=== PATIENT | female | born 1960 | race Caucasian/White ===

== ENCOUNTER 2021-07-27 11:53 | Inpatient (IN) | payer MEDICAID ==
[2021-07-26 18:35] VITALS: BP 146/83
[~2021-07-27] VITALS: Ht 12.7 cm; Wt 70.5 kg
[2021-07-27 12:28] LABS: BASOPHILS % (AUTO) 0.4 % (0-1); EOSINOPHILS % (AUTO) 0.2 % (0-6); HEMATOCRIT 33.2 % (35.0-45.0); HEMOGLOBIN 10.4 g/dl (12.0-16.0); LYMPHOCYTES # (AUTO) 0.5 X10'3 (1.1-4.8); LYMPHOCYTES % (AUTO) 4.9 % (21-51); MEAN CORPUSCULAR HEMOGLOBIN 25.6 PG (27.0-31.0); MEAN CORPUSCULAR HGB CONC 31.4 g/dL (33.0-36.5); MEAN CORPUSCULAR VOLUME 81.6 FL (78-98); MEAN PLATELET VOLUME 9.6 FL (7.4-10.4); MONOCYTES # (AUTO) 0.4 X10'3 (0-0.9); MONOCYTES % (AUTO) 3.3 % (2-12); NEUTROPHILS # (AUTO) 9.7 X10'3 (1.8-7.7); NEUTROPHILS % (AUTO) 91.2 % (42-75); PLATELET COUNT 286 X10'3 (140-440); RED BLOOD COUNT 4.07 X10'6 (4.20-5.60); RED CELL DISTRIBUTION WIDTH 17.7 % (11.5-14.5); WHITE BLOOD COUNT 10.7 X10'3 (4.5-11.0)
[2021-07-27] MEDS ORDERED: normal saline 1000ML IV soln IV ONE (12:40)
[2021-07-27 12:54] LABS: ALANINE AMINOTRANSFERASE 27 U/L (12-78); ALBUMIN 3.4 G/DL (3.4-5.0); ALKALINE PHOSPHATASE 115 IU/L (46-116); ANION GAP 9 (8-16); ASPARTATE AMINO TRANSFERASE 27 U/L (10-37); BILIRUBIN,TOTAL 1.1 MG/DL (0.1-1.0); BLOOD UREA NITROGEN 14 MG/DL (7-18); BUN/CREATININE RATIO 16.1 (6.6-38.0); CALCIUM 8.1 MG/DL (8.5-10.1); CHLORIDE 102 MMOL/L (99-107); CREATININE 0.87 MG/DL (0.40-0.90); GLUCOSE 147 MG/DL (70-104); POTASSIUM 3.9 MMOL/L (3.5-5.1); SODIUM 139 MMOL/L (135-145); TOTAL CARBON DIOXIDE 28.3 MMOL/L (24-32); TOTAL PROTEIN 6.9 G/DL (6.4-8.2); eGFR 67 ML/MIN
[2021-07-27] MEDS ORDERED: aspirin 81mg tab.chew PO ONE (13:40)
[2021-07-27 13:57] LABS: CLARITY,URINE CLEAR (Clear); COLOR,URINE YELLOW (Yellow); GLUCOSE, URINE NEGATIVE (Neg); KETONES,URINE TRACE mg/dl (Neg); LEUKOCYTE ESTERASE ,URINE NEGATIVE (Neg); NITRITES, URINE NEGATIVE (Neg); OCCULT BLOOD,URINE NEGATIVE (Neg); PH,URINE 6.5 (4.8-8.0); PROTEIN,URINE 100 mg/dl (Neg)
[2021-07-27 14:03] LABS: UA COLLECTION TYPE STRAIGHT CATH
[2021-07-27 14:04] LABS: BACTERIA,URINE NONE SEEN /HPF (Neg); MUCUS STRANDS FEW /LPF (Neg); RBC,URINE 0-2 /HPF (0-2); SQUAMOUS EPITHELIAL CELL,UR NONE SEEN /LPF (FEW); WBC,URINE NONE SEEN /HPF (0-4)
[2021-07-27] MEDS ORDERED: morphine 2 MG/ML inj. syringe IV PRN (14:30)
[2021-07-27] MEDS ORDERED: mag hydrox/Alum hydrox/simeth 30ml oral suspension PO PRN (14:30)
[2021-07-27] MEDS ORDERED: acetaminophen 325mg tablet PO PRN (14:30)
[2021-07-27] MEDS ORDERED: magnesium hydroxide 30ml (MOM) UD suspension PO PRN (14:30)
[2021-07-27] MEDS ORDERED: ondansetron/PF 4mg/2ml inj IV PRN (14:30)
[2021-07-27 14:58] LABS: ETHANOL < 0.010 GM/DL (0.0-0.010)
[2021-07-27] MEDS ORDERED: ATOR40TA71 PO (16:20)
[2021-07-27] MEDS ORDERED: ALBU8.5H17 IH (16:20)
[2021-07-27] MEDS ORDERED: METO50TA17 PO (16:20)
[2021-07-27] MEDS ORDERED: METF750T46 PO (16:20)
[2021-07-27] MEDS ORDERED: LORA10TA7 PO (16:20)
[2021-07-27] MEDS ORDERED: INSU100I39 SQ (16:20)
[2021-07-27] MEDS ORDERED: SERT-433 PO (16:20)
[2021-07-27] MEDS ORDERED: PANT40TA54 PO (16:20)
[2021-07-27] MEDS ORDERED: INSU100I31 SQ (16:20)
[2021-07-27] MEDS ORDERED: GABA800T11 PO (16:20)
[2021-07-27] MEDS ORDERED: BUPR-344 PO (16:20)
[2021-07-27] MEDS ORDERED: APIX5TAB3 PO (16:21)
[2021-07-27] MEDS ORDERED: ASPI-611 PO (16:43)
[2021-07-27] MEDS ORDERED: albuterol 2.5 MG/3 ML nebule NEB PRN (16:50)
--- NOTE | 2021-07-27 16:50 | NUR ---
Report given to MEMO Jaramillo in PCU.
[2021-07-27 17:19] VITALS: BP 175/107
[2021-07-27 17:32] LABS: CHOL/HDL RATIO 1.8 (0.00-4.99); CHOLESTEROL 109 MG/DL (0-200); HDL CHOLESTEROL 60 MG/DL (35-60); TRIGLYCERIDES 52 MG/DL (20-135)
[2021-07-27] MEDS ORDERED: hydrALAZINE 20mg/ml inj. IV PRN (17:40)
[2021-07-27] MEDS ORDERED: furosemide 40mg/4ml inj IV ONE ×2 (17:40→22:55)
--- NOTE | 2021-07-27 17:40 | NUR ---
Pt arrived to PCU unit BP 175/107, Pt with complaints of Chest pain(4) on the rt side. Skin war and dry, Denies CP radiatiing. Pagmishel Alfred for orders.Spoke with Dr. Alfred and orders to prn.follow. Addendum: 07/27/21 at 1826 by Ella Boyle RN 1755- BP retaken prior pt leaving for MRI. BP 165/95, Pt calmer less anxious, Encouraged to relax. MRI RN/Tech at bedside, Instructed to wait to give prn blood pressure medicaton till after MRI. Will reassess pt when eli Addendum: 07/27/21 at 1827 by Ella Boyle RN return from MRI.
[2021-07-27 17:45] LABS: LDL CHOLESTEROL 43 MG/DL (50-100)
--- NOTE | 2021-07-27 18:20 | NUR ---
Patient in room PCU 3014. I have received report from MEMO Jaramillo and had the opportunity to ask questions and assume patient care. Pt. in MRI.
--- NOTE | 2021-07-27 18:35 | NUR ---
Pt back from MRI, VSS, Afebrile, son in ro0m with pt. POC discussed with pt, and son, verbalized understanding. Call light placed within easy reach.
[2021-07-27 18:40] VITALS: BP 146/83
[2021-07-27] MEDS ORDERED: insulin glargine (Lantus) pen - multi-dose SQ SCH (21:00)
[2021-07-27] MEDS: metoprolol tartrate 50mg tablet PO SCH (21:26)
[2021-07-27] MEDS: apixaban 5mg tablet PO SCH (21:26)
[2021-07-27] MEDS: docusate sod 100mg capsule PO SCH (21:27)
[2021-07-27] MEDS: insulin Lispro (HumaLOG) vial - multi-dose SQ SCH (21:45)
[2021-07-27 22:00] VITALS: BP 111/69
[2021-07-28 02:00] VITALS: BP 141/78
[2021-07-28 06:00] VITALS: BP 160/91
[2021-07-28 06:39] LABS: BASOPHILS % (AUTO) 0.5 % (0-1); EOSINOPHILS # (AUTO) 0.1 X10'3 (0-0.9); EOSINOPHILS % (AUTO) 0.7 % (0-6); HEMATOCRIT 31.8 % (35.0-45.0); HEMOGLOBIN 10.1 g/dl (12.0-16.0); LYMPHOCYTES # (AUTO) 2.3 X10'3 (1.1-4.8); LYMPHOCYTES % (AUTO) 24.5 % (21-51); MEAN CORPUSCULAR HEMOGLOBIN 25.7 PG (27.0-31.0); MEAN CORPUSCULAR HGB CONC 31.7 g/dL (33.0-36.5); MEAN CORPUSCULAR VOLUME 80.9 FL (78-98); MEAN PLATELET VOLUME 9.9 FL (7.4-10.4); MONOCYTES # (AUTO) 0.8 X10'3 (0-0.9); MONOCYTES % (AUTO) 8.3 % (2-12); NEUTROPHILS # (AUTO) 6.2 X10'3 (1.8-7.7); PLATELET COUNT 270 X10'3 (140-440); RED BLOOD COUNT 3.93 X10'6 (4.20-5.60); RED CELL DISTRIBUTION WIDTH 17.9 % (11.5-14.5); WHITE BLOOD COUNT 9.4 X10'3 (4.5-11.0)
[2021-07-28 07:46] LABS: ALANINE AMINOTRANSFERASE 27 U/L (12-78); ALBUMIN 3.4 G/DL (3.4-5.0); ALBUMIN/GLOBULIN RATIO 1.1 (1.1-1.5); ALKALINE PHOSPHATASE 116 IU/L (46-116); ANION GAP 12 (8-16); ASPARTATE AMINO TRANSFERASE 30 U/L (10-37); BILIRUBIN,TOTAL 0.9 MG/DL (0.1-1.0); BLOOD UREA NITROGEN 15 MG/DL (7-18); BUN/CREATININE RATIO 19.7 (6.6-38.0); CALCIUM 8.3 MG/DL (8.5-10.1); CHLORIDE 103 MMOL/L (99-107); CREATININE 0.76 MG/DL (0.40-0.90); GLUCOSE 81 MG/DL (70-104); POTASSIUM 3.6 MMOL/L (3.5-5.1); SODIUM 142 MMOL/L (135-145); TOTAL CARBON DIOXIDE 26.8 MMOL/L (24-32); TOTAL PROTEIN 6.6 G/DL (6.4-8.2); eGFR 78 ML/MIN
[2021-07-28] MEDS ORDERED: furosemide 40mg/4ml inj IV SCH (08:00)
[2021-07-28] MEDS ORDERED: buPROPion SR 150mg tablet PO SCH (08:00)
[2021-07-28] MEDS ORDERED: enoxaparin 40mg/0.4ml syringe SUBCUT SCH (08:00)
[2021-07-28] MEDS: insulin Lispro (HumaLOG) vial - multi-dose SQ SCH ×2 (08:00→13:59)
[2021-07-28] MEDS: docusate sod 100mg capsule PO SCH (08:00)
[2021-07-28] MEDS ORDERED: sertraline 50mg tablet PO SCH (08:00)
[2021-07-28] MEDS ORDERED: pantoprazole 40mg Tablet.DR PO SCH (08:00)
[2021-07-28] MEDS ORDERED: atorvastatin 20mg tablet PO SCH (08:00)
[2021-07-28] MEDS ORDERED: aspirin 81mg, enteric-coated 1 TAB TABLET.DR PO SCH (08:00)
[2021-07-28] MEDS ORDERED: loratadine 10mg tablet PO SCH (08:00)
[2021-07-28] MEDS: metoprolol tartrate 50mg tablet PO SCH (09:38)
[2021-07-28] MEDS: apixaban 5mg tablet PO SCH (09:39)
--- NOTE | 2021-07-28 10:08 | NUR ---
Noted pt ht 5" and BMI 4367.9 in EMR; LISA d/w RN regarding updated ht this admit. Addendum: 07/28/21 at [address] Amended: Links added.
[2021-07-28 11:00] VITALS: BP 141/73
[2021-07-28] MEDS ORDERED: POTA-207 PO (15:12)
[2021-07-28] MEDS ORDERED: FURO-149 PO (15:12)
--- NOTE | 2021-07-28 16:00 | NUR ---
Discharged. Discharge Teaching/Instructions given, Informed of medication at [facility] on [address] for pick-up, educated on the new medication potassium. IV discontinued, telemetry removed. Pt states has all belongings. Pt escorted to personal vehicle-son awaiting for transfer to home.Denies any complaints or requests prior.
== END 2021-07-28 15:55 | disposition home or self-care (01) | DRG 194 ==
LOC: ER 11:54 → ED HOLD 14:31 → PCU 3S 17:05
PROVIDERS: ADMIT Family Medicine; ATTEND Family Medicine
DX: I11.0 Hypertensive heart disease with heart failure (principal); G93.41 Metabolic encephalopathy; E87.2 Acidosis; G45.9 Transient cerebral ischemic attack, unspecified; E11.9 Type 2 diabetes mellitus without complications; E78.5 Hyperlipidemia, unspecified; I50.23 Acute on chronic systolic (congestive) heart failure; I24.8 Other forms of acute ischemic heart disease; I25.10 Atherosclerotic heart disease of native coronary artery without angina pectoris; J44.9 Chronic obstructive pulmonary disease, unspecified; Z95.1 Presence of aortocoronary bypass graft; Z88.2 Allergy status to sulfonamides; Z79.899 Other long term (current) drug therapy; Z79.82 Long term (current) use of aspirin
CPT/HCPCS: 36415; 70450; 70544; 70551; 71045; 80053; 80061; 80320; 81001; 82140; 82948; 83605; 83880; 84145; 84484; 85025; 87040; 92508; 92616; 93005; 93306; 93880; 96360; 96361; 99285; G0378; J1815; J1940; J2270; J2405; J7030

== ENCOUNTER 2023-03-16 12:01 | Day surgery (SDC) | payer MEDICAID ==
[2023-03-12 15:42] LABS: BASOPHILS % (AUTO) 0.3 % (0-1); EOSINOPHILS # (AUTO) 0.1 X10'3 (0-0.9); EOSINOPHILS % (AUTO) 1.1 % (0-6); HEMATOCRIT 37.4 % (35.0-45.0); LYMPHOCYTES # (AUTO) 1.7 X10'3 (1.1-4.8); LYMPHOCYTES % (AUTO) 22.1 % (21-51); MEAN CORPUSCULAR HEMOGLOBIN 25.9 PG (27.0-31.0); MEAN CORPUSCULAR HGB CONC 32.1 g/dL (33.0-36.5); MEAN CORPUSCULAR VOLUME 80.5 FL (78-98); MEAN PLATELET VOLUME 8.8 FL (7.4-10.4); MONOCYTES # (AUTO) 0.4 X10'3 (0-0.9); MONOCYTES % (AUTO) 4.9 % (2-12); NEUTROPHILS # (AUTO) 5.4 X10'3 (1.8-7.7); NEUTROPHILS % (AUTO) 71.6 % (42-75); PLATELET COUNT 316 X10'3 (140-440); RED BLOOD COUNT 4.64 X10'6 (4.20-5.60); RED CELL DISTRIBUTION WIDTH 15.2 % (11.5-14.5); WHITE BLOOD COUNT 7.6 X10'3 (4.5-11.0)
[2023-03-12 15:47] LABS: APTT 32 SECONDS (22-32); INR 1.1 INR; PROTHROMBIN TIME 11.3 SECONDS (9.0-12.0)
[2023-03-12 15:48] LABS: ALBUMIN 3.9 G/DL (3.4-5.0); ANION GAP 9 (8-16); BLOOD UREA NITROGEN 19 MG/DL (7-18); BUN/CREATININE RATIO 17.3 (10.0-20.0); CALCIUM 8.9 MG/DL (8.5-10.1); CHLORIDE 98 MMOL/L (99-107); GLUCOSE 267 MG/DL (70-104); SODIUM 138 MMOL/L (135-145); TOTAL CARBON DIOXIDE 31.2 MMOL/L (24-32); eGFR 51 ML/MIN
[2023-03-16] VITALS (11 sets, daily range): BP systolic 109–186; BP diastolic 33–97; PULSE 73–82; RESP 12–23; TEMP 98.3; O2SAT 96–98
[~2023-03-16] VITALS: Ht 142.2 cm; Wt 75.8 kg
[~2023-03-16 12:01] MED LIST: ALBU8.5H17 IH; APIX5TAB3 PO; ASPI-611 PO; ATOR40TA71 PO; BUPR-344 PO; FURO-149 PO; INSU100I31 SQ; INSU100I39 SQ; LORA10TA7 PO; METF750T46 PO; METO50TA17 PO; PANT40TA54 PO; SERT-433 PO
[2023-03-16] MEDS ORDERED: diphenhydrAMINE 25mg capsule PO PRN (12:15)
[2023-03-16] MEDS ORDERED: normal saline 1,000 ML IV SCH (12:15)
[2023-03-16] MEDS ORDERED: LORazepam 0.5 MG tablet PO PRN (12:15)
[2023-03-16] MEDS ORDERED: LIDOcaine 1% (10mg/ml)w/preservative inj. 20ml MDV ONE (12:38)
[2023-03-16] MEDS ORDERED: midazolam 1 mg/ML 2ml injection ONE (13:07)
[2023-03-16] MEDS ORDERED: LIDOcaine 1% (10mg/ml) 2ml vial ONE (13:07)
[2023-03-16] MEDS ORDERED: verapamil 2.5 mg/ml inj IV ONE (13:07)
[2023-03-16] MEDS ORDERED: fentaNYL/PF 50MCG/1 ML 2ML syringe ONE (13:07)
[2023-03-16] MEDS ORDERED: heparin 1,000unit/ml 10ml vial 10 ML ONE (13:08)
[2023-03-16] MEDS ORDERED: iohexol 350MG/ML 100ml bottle IV ONE (13:08)
[2023-03-16] MEDS ORDERED: ondansetron/PF 4mg/2ml inj IV PRN (13:50)
[2023-03-16] MEDS ORDERED: HYDROcodone/acetaminophen 5mg/325mg tablet PO PRN (13:50)
[2023-03-16] MEDS ORDERED: HYDROcodone/acetaminophen 10/325mg tab PO PRN (13:50)
[2023-03-16] MEDS ORDERED: proCHLORperazine 10 MG/2 ml inj IV PRN (13:50)
[2023-03-16] MEDS ORDERED: ACET-75 PO (14:35)
[2023-03-16] MEDS ORDERED: EMPA25TA PO (14:35)
[2023-03-16] MEDS ORDERED: CETI10TA14 PO (14:35)
[2023-03-16] MEDS ORDERED: FISH1CAP15 PO (14:35)
[2023-03-16] MEDS ORDERED: GABA800T11 PO (14:35)
[2023-03-16] MEDS ORDERED: MULT-620 PO (14:35)
[2023-03-16] MEDS ORDERED: CYCL-1 PO (14:35)
[2023-03-16] MEDS ORDERED: HYDR-3965 PO (14:35)
[2023-03-16] MEDS ORDERED: FURO40TA4 PO (14:35)
[2023-03-16] MEDS ORDERED: VITA1TAB60 PO (14:36)
== END 2023-03-16 17:45 | disposition home or self-care (01) ==
LOC: SSTAY O 12:01
PROVIDERS: ATTEND Student in an Organized Health Care Education/Training Program
DX: G45.8 Other transient cerebral ischemic attacks and related syndromes (principal); I11.0 Hypertensive heart disease with heart failure; I50.9 Heart failure, unspecified; I25.10 Atherosclerotic heart disease of native coronary artery without angina pectoris; E78.00 Pure hypercholesterolemia, unspecified; Z79.899 Other long term (current) drug therapy
CPT/HCPCS: 36225; 36415; 80048; 82948; 84132; 85025; 85610; 85730; 93005; 99152; A6258; J1644; J2250; J3010; J3490; J7030; Q9967; A6402; C1894

== ENCOUNTER 2023-09-09 10:02 | Emergency (ER) | payer MEDICAID ==
[~2023-09-09] VITALS: Ht 149.9 cm; Wt 70.8 kg
[~2023-09-09 10:02] MED LIST changes: +ACET-75 PO; -BUPR-344 PO; +CETI10TA14 PO; +CYCL-1 PO; +EMPA25TA PO; +FISH1CAP15 PO; -FURO-149 PO; +FURO40TA4 PO; +GABA800T11 PO; +HYDR-3965 PO; -LORA10TA7 PO; +MULT-620 PO; +VITA1TAB60 PO
[2023-09-09 10:12] VITALS: TEMP 97.8
[2023-09-09 13:11] VITALS: BP 95/76; PULSE 98; RESP 6; O2SAT 100
== END 2023-09-09 13:13 | disposition home or self-care (01) ==
LOC: ER 10:03
DX: S70.01XA Contusion of right hip, initial encounter (principal); S80.211A Abrasion, right knee, initial encounter; S09.8XXA Other specified injuries of head, initial encounter; J44.9 Chronic obstructive pulmonary disease, unspecified; I25.10 Atherosclerotic heart disease of native coronary artery without angina pectoris; I50.9 Heart failure, unspecified; Z88.2 Allergy status to sulfonamides; Z79.82 Long term (current) use of aspirin; Z79.899 Other long term (current) drug therapy; Z79.4 Long term (current) use of insulin; W19.XXXA Unspecified fall, initial encounter; Y93.89 Activity, other specified; Y92.89 Other specified places as the place of occurrence of the external cause; Y99.8 Other external cause status
CPT/HCPCS: 70450; 73502; 73564; 99284